=== PATIENT | female | born 2000 | race Caucasian/White ===

== ENCOUNTER 2024-01-07 19:01 | Emergency (ER) | payer BC, SELFPAY ==
[2024-01-07 19:07] VITALS: BP 129/91; PULSE 98; RESP 16; TEMP 36.2; O2SAT 98; BMI 21.3
--- NOTE | 2024-01-07 19:27 | ED.ABDPAIN ---
HPI - Abdominal Pain General Chief Complaint: Abdominal Pain Stated Complaint: upper abdominal pain Time Seen by Provider: 01/07/24 19:08 History of Present Illness HPI narrative: This 23-year-old female comes in with right upper quadrant pain that awoke her from sleep during the night last night. She has had ongoing pain today that comes and goes somewhat. She had an endoscopy yesterday to evaluate for possibility of celiac disease. She states that she has had some issues relating to taking food that triggered this study however she has not had any abdominal pain like this in till today. She did have some nausea this morning but no vomiting. She states she is otherwise in good health. She does not report any dysuria or altered bowel function. Related Data Home Medications ?Medication ?Instructions ?Recorded ?Confirmed albuterol sulfate 90 mcg/actuation g inhalation 09/29/22 02/07/23 aerosol inhaler (Ventolin HFA) sertraline 25 mg tablet 37.5 mg PO 09/29/22 02/07/23 azelastine 137 mcg (0.1 %) nasal 1 spray intranasal BID 02/07/23 02/07/23 spray aerosol beclomethasone dipropionate 40 inhalation 02/07/23 02/07/23 mcg/actuation HFA breath activated aerosol (Qvar RediHaler) cholecalciferol (vitamin D3) 25 25 mcg PO QDAY 02/07/23 02/07/23 mcg (1,000 unit) capsule cromolyn 5.2 mg/spray (4 %) nasal 1 spray intranasal QID 02/07/23 02/07/23 spray mecobalamin (vitamin B12) 1,000 1,000 mcg PO QDAY 02/07/23 02/07/23 mcg lozenges Allergies Allergy/AdvReac Type Severity Reaction Status Date / Time amoxicillin Allergy Mild Rash Verified 02/07/23 09:00 Review of Systems Status of ROS Reports: 10 or more systems reviewed and unremarkable except as noted in History and below Narrative Constitutional: No fevers, no weight gain or loss. Eyes: No discharge. No vision changes. HENT: No congestion, no sore throat, no ear pain. Cardiovascular: No chest pain, no palpitations. Respiratory: No shortness of breath, no wheezes, no cough. Gastrointestinal: No vomiting, no diarrhea. Abdominal pain as described above. Genitourinary: No dysuria, no hematuria. Musculoskeletal: Normal range of motion. Skin: No rashes, no pruritis. Neurological: No dizziness, weakness, sensory change, speech change. Endo/Heme/Allergies: No bruising or bleeding. No polydipsia. Pysch: no suicidality, no anxiety, no insomnia. All other systems reviewed and are negative. [facility] Social History Smoking Status: Never smoker Exam Narrative: Exam Narrative: Constitutional: Well-developed, well-nourished, no acute distress. HEENT: Normocephalic, atraumatic. Neck: Normal range of motion. Nontender. Supple. Heart: Regular. No murmurs. Normal rate. Intact distal pulses. Lungs: Clear to auscultation. No chest discomfort. No wheezes, rhonchi, or rales. Abdomen: Normal bowel sounds. No rebound tenderness. Tenderness in the right upper quadrant extending toward the mid upper abdomen. Some referral of pain to her right flank. Genitalia: Deferred. Back: No midline tenderness. Normal range of motion. Extremities: Normal range of motion. No injury. Skin: Intact. No rash. Warm. No erythema or pallor. Neurologic: No altered sensation. No weakness. Alert and oriented. Psychiatric: No suicidality. No anxiety or depression. No insomnia. Nursing notes and vitals signs are reviewed. Const: Vital Signs, click to edit/add: Vital Signs - 24 hr 01/07/24 19:07 Temperature 97.1 F L Pulse Rate [Pulse Oximeter] 98 Respiratory Rate 16 Blood Pressure [Ri ght Upper Arm] 129/91 H Pulse Oximetry 98 Oxygen Delivery Me thod Room Air Course Vital Signs Vital signs: Initial Vital Signs Temperature 97.1 F L 01/07/24 19:07 Temperature Source Temporal Artery Scan 01/07/24 19:07 Pulse Rate 98 01/07/24 19:07 Respiratory Rate 16 01/07/24 19:07 Blood Pressure 129/91 H 01/07/24 19:07 Blood Pressure Mean 103 01/07/24 19:07 Blood Pressure Position Sitting 01/07/24 19:07 Pulse Oximetry 98 01/07/24 19:07 Oxygen Delivery Method Room Air 01/07/24 19:07 Vital Signs Temperature 97.1 F L 01/07/24 19:07 Pulse Rate 98 01/07/24 19:07 Respiratory Rate 16 01/07/24 19:07 Blood Pressure 129/91 H 01/07/24 19:07 Pulse Oximetry 98 01/07/24 19:07 Oxygen Delivery Method Room Air 01/07/24 19:07 Temperature 97.1 F L 01/07/24 19:07 Pulse Rate 98 01/07/24 19:07 Respiratory Rate 16 01/07/24 19:07 Blood Pressure 129/91 H 01/07/24 19:07 Pulse Oximetry 98 01/07/24 19:07 Oxygen Delivery Method Room Air 01/07/24 19:07 MDM - Abdominal Pain MDM Narrative Medical decision making narrative: This patient comes in with right upper quadrant and upper epigastric abdominal pain as described above. An ultrasound is obtained which shows normal gallbladder and anatomy of other organs in the upper abdomen. She does have a fair amount of gas in her bowel in this area and this likely is causing her discomfort. She did have an endoscopy yesterday and this may have triggered some symptoms. She is okay to be discharged home. She did receive a prescription for Toradol. Discharge Plan Discharge Clinical Impression: Abdominal pain Patient Disposition: Home, Self-Care Condition: Stable Additional Instructions: Take medication as needed and indicated. Increase activity as tolerated. Follow up with MD or return if symptoms are worsening. Prescriptions: No Action sertraline 25 mg tablet 37.5 mg PO Patient Comments: TAKE 1.5 TABLETS (37.5 MG) BY MOUTH ONCE DAILY. albuterol sulfate [Ventolin HFA] 90 mcg/actuation HFA aerosol inhaler inhalation Patient Comments: INHALE 1-2 PUFFS BY MOUTH EVERY 4 HOURS IF NEEDED FOR SHORTNESS OF BREATH 1ST CHOICE. Qvar RediHaler 40 mcg/actuation HFA aerosol breath activated inhalation cromolyn 5.2 mg/spray (4 %) spray,non-aerosol 1 spray intranasal QID azelastine 137 mcg (0.1 %) aerosol,spray 1 spray intranasal BID cholecalciferol (vitamin D3) 25 mcg (1,000 unit) capsule 25 mcg PO QDAY mecobalamin (vitamin B12) 1,000 mcg lozenge 1,000 mcg PO QDAY Rx Instructions: allow to dissolve in mouth OR may chew lightly before swallowing Follow Up/Referrals: NISHANT PERALTA DO [Primary Care Provider] - [facility]
--- NOTE | 2024-01-07 19:44 | CRLHL7_ITS ---
For Patients: As a result of the Century Cures Act, medical imaging exams and procedure reports are released immediately into your electronic medical record. You may view this report before your referring provider. If you have questions, please contact your health care provider. INDICATION: Right upper quadrant pain COMPARISON: None available TECHNIQUE: Real time brownlee scale imaging and color Doppler analysis was performed of the right upper quadrant. FINDINGS: The patient`s liver is of normal size and has uniform echogenicity. There is a normal appearance of the hepatic IVC and proximal abdominal aorta. No ascites in the right upper quadrant. No gallbladder distention. The gallbladder wall measures 2 mm. No pericholecystic fluid. The common bile duct is of normal size and measures 4 mm in diameter at the level of the lowell hepatis. The pancreas could not be visualized due to shadowing from bowel gas. No evidence of a stone or hydronephrosis within the right kidney. The right kidney measures 10.7 x 6.2 x 5.5 cm. IMPRESSION: Normal right upper quadrant ultrasound. Dictated by Shai Dawn MD @ 01/07/2024 8:47:49 PM (Electronically Signed)
== END 2024-01-07 20:48 | disposition home or self-care (01) ==
PROVIDERS: Emergency Provider Emergency Medicine Emergency Medical Services; PCP Student in an Organized Health Care Education/Training Program
DX: R10.11 Right upper quadrant pain (principal)
CPT/HCPCS: 76705; 99282; 99284

== ENCOUNTER 2024-03-14 07:04 | Outpatient (CLI) | payer BC, SELFPAY ==
--- NOTE | 2024-03-14 07:15 | CRLHL7_ITS ---
For Patients: As a result of the Century Cures Act, medical imaging exams and procedure reports are released immediately into your electronic medical record. You may view this report before your referring provider. If you have questions, please contact your health care provider. INDICATION: Exocrine pancreatic insufficiency TECHNIQUE: 1.5 T MRI scan performed with pre and postcontrast T1 weighted imaging; T2 weighted imaging; diffusion weighted imaging; in and out of phase imaging. Inadequate arterial phase post contrast bolus timing. 20 cc Dotarem IV. COMPARISON: Abdominal ultrasound 01/07/2024 FINDINGS: Lungs: The lung bases are clear. No pleural or pericardial effusion. Liver: Homogeneous liver parenchyma. No hepatic masses. Scattered subcentimeter T2 hyperintensities too small to accurately characterize, but likely benign cysts. Biliary tree and gallbladder: No intra or extrahepatic biliary dilation. Fluid-filled gallbladder without stones. Spleen: Unremarkable Pancreas: Normal pancreatic parenchyma. No pancreatic masses. No pancreatic duct dilation. Adrenal glands: Unremarkable. Kidneys and ureters: No renal masses or hydronephrosis. GI tract: No evidence of obstruction or inflammation. Normal appendix. Vasculature: The IVC and aorta are patent. No abdominal aortic aneurysm. Lymph nodes: No lymphadenopathy. Abdominal wall: Few foci of subtle enhancement within the left breast tissue, likely physiologic. Bones: Bone marrow signal is normal. IMPRESSION: 1. Suboptimal study secondary to lack of arterial phase. Within this limitation, no abnormal findings in the abdomen. Specifically, no abnormality of the pancreas or pancreatic duct. Dictated by Elysia Luna MD @ 03/15/2024 9:29:49 AM (Electronically Signed)
== END 2024-03-14 07:05 | disposition home or self-care (01) ==
PROVIDERS: PCP Student in an Organized Health Care Education/Training Program; Visit Provider Internal Medicine Gastroenterology
DX: K86.81 Exocrine pancreatic insufficiency (principal)
CPT/HCPCS: 74183; A9575

== ENCOUNTER 2024-07-18 15:19 | Outpatient (CLI) | payer BC, SELFPAY | END 2024-07-18 15:20 | disposition home or self-care (01) | LOC: NFLDUCREF 15:21 | PROVIDERS: PCP Student in an Organized Health Care Education/Training Program | DX: R06.02 Shortness of breath (principal) | CPT/HCPCS: 85379 ==

== ENCOUNTER 2024-07-18 18:20 | Emergency (ER) | payer BC, SELFPAY ==
[2024-07-18 18:25] VITALS: BP 139/81; PULSE 125; RESP 20; TEMP 37.6; O2SAT 97; BMI 22.1
--- NOTE | 2024-07-18 18:36 | ED_ITS ---
HPI - General Adult General Time Seen by Provider: 18:40 Date Seen: 07/18/24 Chief complaint: Shortness of Breath/Dyspnea Stated complaint: Elevated D-dimer Time Seen by Provider: 07/18/24 18:24 Source: patient, RN notes reviewed and other (Called by urgent care) Mode of arrival: ambulatory Limitations: no limitations History of Present Illness HPI narrative: This 23-year-old female is coming in from urgent care with an elevated D-dimer. She was at urgent care prior to coming here for illness that was worsening, worsening chest symptoms and fever, shortness of breath. Her D-dimer in urgent care was 0.65. She was subsequently sent to the ER for chest imaging. Her urgent care notes were reviewed. She essentially started with upper respiratory symptoms but the last 4 days has worsened, has developed fevers up to 102. Is still drinking fine but appetite is decreased. No diarrhea. She is not on any contraceptives, denies any chance for . There is a maternal grandfather with reportedly an unprovoked pulmonary embolus but he was in his 70s. There is no other family history of thromboembolic disease, patient is never had a blood clot. She also did just travel from [place]. She did have a negative triple viral swab in Urgent Care today. She has had pneumonia exposure recently. Related Data Home Medications ?Medication ?Instructions ?Recorded ?Confirmed albuterol sulfate 90 mcg/actuation g inhalation 09/29/22 07/18/24 aerosol inhaler (Ventolin HFA) azelastine 137 mcg (0.1 %) nasal 1 spray intranasal BID 02/07/23 07/18/24 spray mecobalamin (vitamin B12) 1,000 1,000 mcg PO QDAY 02/07/23 07/18/24 mcg lozenges budesonide 0.5 mg/2 mL suspension mg inhalation 02/04/24 07/18/24 for nebulization hydroxyzine HCl 10 mg tablet 10 mg PO 3XD 02/04/24 07/18/24 Previous Rx's ?Medication ?Instructions ?Recorded azithromycin 250 mg tablet See Rx Instructions PO .COMPLEX #6 07/18/24 tabs cefdinir 300 mg capsule 300 mg PO BID 10 days #20 caps 07/18/24 Allergies Allergy/AdvReac Type Severity Reaction Status Date / Time amoxicillin Allergy Mild Rash Verified 12/09/24 19:10 Review of Systems Status of ROS: Reports: 6 or more systems reviewed and unremarkable except as noted in History and below [facility] Social History Smoking Status: Never smoker Exam Const: Vital Signs, click to edit/add: Vital Signs - 24 hr 07/18/24 18:25 Temperature 99.6 F Pulse Rate [Right Pulse Oximeter] 125 H Respiratory Rate 20 Blood Pressure [Ri ght Upper Arm] 139/81 Pulse Oximetry 97 Oxygen Delivery Me thod Room Air This 23-year-old female is alert, interactive, no apparent distress. Cheeks are flushed, skin is warm but no rash. Sclera clear. She is wearing a mask, able to speak in complete sentences. Lungs actually are clear, no wheezing or crackles. CV is fast per regular, no murmur. Abdomen soft no rebound or guarding, no organomegaly. Documenting provider has reviewed patient's vital signs: yes Course Course ED Course: Did review with patient as she had asked about this, agree with her that her D- dimer could be elevated from pneumonia. Given some of the other features in the history, feel it is prudent to proceed with the chest CT PE imaging just to ensure no complicating factors here such as a pulmonary embolus. Certainly tachycardia and shortness of breath can happen with pneumonia as well. We will also get a baseline CBC. Antibiotics have been sent in to the pharmacy from urgent care. She reportedly had a penicillin allergy and had hives when she was young. It is possible that this could have just been a viral reaction but both patient and her mom understand that we will not do an antibiotic challenge at this time. That could be considered down the road. Reevaluation(s) Time of Reevaluation #1: 20:06 Reevaluation #1: Have reviewed with patient and her mom her CT result. She has pneumonia but no blood clot. She certainly does have a significant lobar pneumonia, would recommend that she be covered with 2 antibiotics for community-acquired pneumonia. The pharmacy will be closed, she will get her Z-Emigdio from [facility]. Will do IV dose of 1 g Rocephin here given pneumonia on the CT and her symptoms. Will initiate cefdinir orally which she can pickle cutter at the pharmacy tomorrow. She does not need hospitalization at this time, is stable to be able to try outpatient management. Will provide a note to be out of work for the next 2 days. Vital Signs Vital signs: Initial Vital Signs Temperature 99.6 F 07/18/24 18:25 Temperature Source Temporal Artery Scan 07/18/24 18:25 Pulse Rate 125 H 07/18/24 18:25 Pulse Rhythm Regular 07/18/24 18:25 Pulse Strength 3+ Normal 07/18/24 18:25 Respiratory Rate 20 07/18/24 18:25 Blood Pressure 139/81 07/18/24 18:25 Blood Pressure Mean 100 07/18/24 18:25 Blood Pressure Position Sitting 07/18/24 18:25 Pulse Oximetry 97 07/18/24 18:25 Oxygen Delivery Method Room Air 07/18/24 18:25 Vital Signs Temperature 99.6 F 07/18/24 18:25 Pulse Rate 125 H 07/18/24 18:25 Respiratory Rate 20 07/18/24 18:25 Blood Pressure 139/81 07/18/24 18:25 Pulse Oximetry 97 07/18/24 18:25 Oxygen Delivery Method Room Air 07/18/24 18:25 Temperature 99.6 F 07/18/24 18:25 Pulse Rate 125 H 07/18/24 18:25 Respiratory Rate 20 07/18/24 18:25 Blood Pressure 139/81 07/18/24 18:25 Pulse Oximetry 97 07/18/24 18:25 Oxygen Delivery Method Room Air 07/18/24 18:25 Medications Administered Medications: Discontinued Medications Generic Name Dose Route Start Last Admin Trade Name Shi PRN Reason Stop Dose Admin Ceftriaxone Sodium 1 gm/ 100 mls @ 200 mls/hr 07/18/24 20:05 07/18/24 20:54 Sodium Chloride IVPB 07/18/24 20:06 Infused ONCE ONE Infusion Medical Decision Making Lab Data Labs: Lab Results 07/18/24 Range/Units 19:05 WBC 4.08 L (4.50-11.00) K/uL RBC 4.57 (4.00-5.20) m/uL Hgb 13.4 (12.0-16.0) gm/dL Hct 38.9 (33.0-51.0) % MCV 85 (80-100) fL MCH 29 (26-34) pg MCHC 34 (32-36) gm/dL RDW Coeff of Shaquille 12.1 (11.5-15.5) % Plt Count 122 L (140-440) K/uL Neut % (Auto) 67.9 (42.0-72.0) % Lymph % (Auto) 19.9 L (20-44) % [place] % (Auto) 12.0 H (0.0-11.0) % Eos % (Auto) 0.0 (0.0-7.0) % Baso % (Auto) 0.2 (0.0-3.0) % Neut # (Auto) 2.80 (1.7-7.0) K/uL Lymph # (Auto) 0.80 L (0.90-2.90) K/uL Pima # (Auto) 0.50 (0.00-0.90) K/UL Eos # (Auto) 0.00 (0.00-0.50) K/uL Baso # (Auto) 0.00 (0.00-0.30) K/uL Abs Immat Gran (auto) 0.00 (0.00-0.30) K/uL Imm/Tot Granulo (auto) 0.0 % Imaging Data CT scan - chest: Attestation: I have reviewed the pertinent imaging results. Radiologist's impression: Patient: LLUVIA NICOLAS Facility:?[facility] Patient ID:?[id number] Site Patient ID:?[id number]. Site :?[id number] Study:?CT-Chest Angio PE PROTOCOL W/95CC ISOVUE 370-07/18/2024 7:23:31 PM Ordering Physician:Donte Reis Final Report: INDICATION: Dyspnea. Chest pain. TECHNIQUE: Multiplanar CT pulmonary angiogram was performed after the administration of 95 mL of Isovue 370 intravenous contrast. COMPARISON: Chest radiograph 07/18/2024. FINDINGS: Lower neck: The visualized thyroid is unremarkable. Cardiovascular: Contrast opacification of the pulmonary arterial tree is adequate. Heart size is normal. Thoracic aorta and pulmonary artery are normal in caliber. No significant atherosclerotic calcifications of the aortic arch. No significant coronary arterial calcifications. No pulmonary embolus. Mediastinum and lymph nodes: Unremarkable. No pathologic mediastinal or hilar lymphadenopathy by size criteria. Lungs: Right lower lobe consolidation with associated tree-in-bud nodularity and ground-glass airspace opacities. Airways: Trachea remains patent and midline. Mild right lower lobe peribronchial wall thickening. Pleura: No pleural effusions or pneumothorax Chest wall: Unremarkable. Prominent axillary lymph nodes that do not meet size criteria for lymphadenopathy. Bones: No acute osseous abnormalities. Upper abdomen: No acute findings within the visualized upper abdomen. No reflux of contrast material into the IVC. IMPRESSION: 1. No pulmonary embolus. No CT evidence of right heart strain. 2. Findings compatible with a right lower lobe pneumonia. Please note that all CT scans at this facility use dose modulation, iterative reconstruction, and/or weight-based dosing when appropriate to reduce radiation dose to as low as reasonably achievable. Dictated by Gabriel Burks MD @ 07/18/2024 8:00:19 PM (Electronic Signature) Discharge Plan Discharge Clinical Impression: Community acquired pneumonia Patient Disposition: Home, Self-Care Condition: Stable Instructions: Community Acquired Pneumonia (ED) Additional Instructions: Start Z-Emigdio tonight and take as prescribed. Start cefdinir tomorrow afternoon or evening and take twice a day until completed. Rest, drink plenty of fluids. Have provided a note to be off work for the next 2 days. Appetite should improve as you feel better. If you are not improving over the next week, feel you are worsening at any point, have increased difficulty breathing or shortness of breath, do need to be re-evaluated. Activity Level: Activity as Tolerated Discharge Diet: Regular Prescriptions: New cefdinir 300 mg capsule 300 mg PO BID 10 Days Qty: 20 0RF No Action hydroxyzine HCl 10 mg tablet 10 mg PO 3XD budesonide 0.5 mg/2 mL suspension for nebulization inhalation Patient Comments: [NO ORIGINAL SIG] azithromycin 250 mg tablet See Rx Instructions PO .COMPLEX Qty: 6 0RF Rx Instructions: For 250 mg dose pack: take 500 mg today (day 1), then 250 mg for 4 days (days 2-5) PO albuterol sulfate [Ventolin HFA] 90 mcg/actuation HFA aerosol inhaler inhalation Patient Comments: INHALE 1-2 PUFFS BY MOUTH EVERY 4 HOURS IF NEEDED FOR SHORTNESS OF BREATH 1ST CHOICE. azelastine 137 mcg (0.1 %) aerosol,spray 1 spray intranasal BID mecobalamin (vitamin B12) 1,000 mcg lozenge 1,000 mcg PO QDAY Rx Instructions: allow to dissolve in mouth OR may chew lightly before swallowing Follow Up/Referrals: NISHANT PERALTA DO [Primary Care Provider] - [facility]
--- NOTE | 2024-07-18 18:50 | CRLHL7_ITS ---
For Patients: As a result of the Century Cures Act, medical imaging exams and procedure reports are released immediately into your electronic medical record. You may view this report before your referring provider. If you have questions, please contact your health care provider. INDICATION: Dyspnea. Chest pain. TECHNIQUE: Multiplanar CT pulmonary angiogram was performed after the administration of 95 mL of Isovue 370 intravenous contrast. COMPARISON: Chest radiograph 07/18/2024. FINDINGS: Lower neck: The visualized thyroid is unremarkable. Cardiovascular: Contrast opacification of the pulmonary arterial tree is adequate. Heart size is normal. Thoracic aorta and pulmonary artery are normal in caliber. No significant atherosclerotic calcifications of the aortic arch. No significant coronary arterial calcifications. No pulmonary embolus. Mediastinum and lymph nodes: Unremarkable. No pathologic mediastinal or hilar lymphadenopathy by size criteria. Lungs: Right lower lobe consolidation with associated tree-in-bud nodularity and ground-glass airspace opacities. Airways: Trachea remains patent and midline. Mild right lower lobe peribronchial wall thickening. Pleura: No pleural effusions or pneumothorax Chest wall: Unremarkable. Prominent axillary lymph nodes that do not meet size criteria for lymphadenopathy. Bones: No acute osseous abnormalities. Upper abdomen: No acute findings within the visualized upper abdomen. No reflux of contrast material into the IVC. IMPRESSION: 1. No pulmonary embolus. No CT evidence of right heart strain. 2. Findings compatible with a right lower lobe pneumonia. Please note that all CT scans at this facility use dose modulation, iterative reconstruction, and/or weight-based dosing when appropriate to reduce radiation dose to as low as reasonably achievable. Dictated by Gabriel Burks MD @ 07/18/2024 8:00:19 PM (Electronically Signed)
[2024-07-18 19:15] LABS: Basophils Percent Auto 0.2 % (0.0-3.0); Hematocrit 38.9 % (33.0-51.0); Hemoglobin* 13.4 gm/dL (12.0-16.0); Lymphocytes Percent Auto 19.9 % (20-44); Mean Corpuscular HGB Conc 34 gm/dL (32-36); Mean Corpuscular Hemoglobin 29 pg (26-34); Mean Corpuscular Volume 85 fL (80-100); Neutrophils Percent Auto 67.9 % (42.0-72.0); Platelet Count* 122 K/uL (140-440); RDW Coefficient of Variation % 12.1 % (11.5-15.5); Red Blood Count 4.57 m/uL (4.00-5.20); White Blood Count* 4.08 K/uL (4.50-11.00)
[2024-07-18 19:22] LABS: Slide Review Reflex No
[2024-07-18] MEDS: cefTRIAXone 1 GM in 0.9 % SODIUM CHLORIDE Mini-bag 100 ML IVPB (20:19)
== END 2024-07-18 21:03 | disposition home or self-care (01) ==
PROVIDERS: Emergency Provider Family Medicine; PCP Student in an Organized Health Care Education/Training Program
DX: J18.9 Pneumonia, unspecified organism (principal); R06.02 Shortness of breath
CPT/HCPCS: 36415; 71275; 85025; 85379; 96365; 99284; J0696; Q9967